=== PATIENT | male | born 1985 | race African-American/Black ===

== ENCOUNTER 2024-10-14 09:55 | Emergency (ER) | payer OTHER ==
[~2024-10-14] VITALS: Ht 172.7 cm; Wt 81.6 kg
[2024-10-14 10:18] LABS: PLATELET COUNT (AUTO) 351 K/uL (152-348); RED BLOOD CELL COUNT(AUTO) 5.25 MIL/uL (4.06-5.63); RED CELL DISTRIBUTION WIDTH 17.0 % (12.1-16.2); WHITE BLOOD COUNT (AUTO) 6.6 K/uL (3.6-10.2)
[2024-10-14 10:23] LABS: CREATININE 1.0 mg/dL (0.6-1.3); SODIUM SERUM 140 mmol/L (136-145); UREA NITROGEN, BLOOD 9 mg/dL (7-18)
[2024-10-14 10:34] LABS: ETHANOL 297.0 MG/DL (0-10)
[2024-10-14 10:36] LABS: ASPARTATE AMINOTRANSFERASE 25 U/L (15-37); TOTAL PROTEIN, SERUM 8.1 g/dL (6.4-8.2)
[2024-10-14 10:55] LABS: *BILIRUBIN,URIN NEGATIVE (NEGATIVE); *BLOOD, URINE TRACE (NEGATIVE); *CLARITY,URINE CLEAR (CLEAR); *COLOR,URINE YELLOW (YELLOW); *KETONES,URINE NEGATIVE (NEGATIVE); *PROTEIN,URINE NEGATIVE (NEGATIVE); *UROBILINOGEN,URINE 0.2 E.U./dl (NORMAL); LEUKOCYTE ESTERASE ,URINE TRACE (NEGATIVE); NITRITE, URINE NEGATIVE (NEGATIVE); UGLUCOSE NEGATIVE (NEGATIVE)
[2024-10-14 10:57] LABS: URINE AMORPHOUS URATE FEW /HPF
[2024-10-14 11:00] LABS: IRON, SERUM 276 ug/dL (50-175)
[2024-10-14 11:08] LABS: *AMPHETAMINE, URINE NEGATIVE (NEGATIVE); *BARBITURATE, URINE NEGATIVE (NEGATIVE); *BENZODIAZEPINE, URINE NEGATIVE (NEGATIVE); *CANNABINOID, URINE NEGATIVE (NEGATIVE); *COCCAINE, URINE NEGATIVE (NEGATIVE); *OPIATE, URINE NEGATIVE (NEGATIVE); *PHENCYCLIDINE SCREEN,URINE NEGATIVE (NEGATIVE); FENTANYL, URINE NEGATIVE (NEGATIVE)
[2024-10-14] MEDS ORDERED: CEFTRIAXONE /D5W 50ML IVPB **ER PYXIS IV ONE (12:26)
[2024-10-14] MEDS ORDERED: THIAMINE HCL 100 MG TABLET ONE (13:48)
[2024-10-14] MEDS: THIAMINE HCL 100 MG TABLET PO ONE (13:52)
[2024-10-14] MEDS ORDERED: CHLORDIAZEPOXIDE HCL 25 MG CAPSULE ONE ×2 (14:59→16:49)
[2024-10-14] MEDS: CHLORDIAZEPOXIDE HCL 25 MG CAPSULE PO ONE ×2 (15:03→17:02)
[2024-10-14 18:00] VITALS: BP 137/89
[2024-10-14 18:10] VITALS: BP 137/89; TEMP 98.3; O2SAT 97
[2024-10-16 23:07] LABS: CHLAMYDIA TRACHOMATIS NAA Negative (Negative); NEISSERIA GONORRHOEAE NAA Negative (Negative)
== END 2024-10-14 18:10 | disposition home or self-care (01) ==
LOC: ER 09:55
DX: F10.129 Alcohol abuse with intoxication, unspecified (principal); Y90.8 Blood alcohol level of 240 mg/100 ml or more; Z11.3 Encounter for screening for infections with a predominantly sexual mode of transmission
CPT/HCPCS: 36415; 83550; 85025; 87086; 87491; 87591; 93005; A4606; A4663; C1758; G0480; J0696